=== PATIENT | male | born 1990 | race Caucasian/White ===

== ENCOUNTER 2019-04-04 20:37 | Emergency (ER) | payer OTHER ==
[~2019-04-04] VITALS: Ht 175.3 cm; Wt 90.7 kg
[2019-04-04 20:52] VITALS: Ht 175.3 cm; Wt 90.7 kg
[2019-04-04 23:01] VITALS: BP 120/68
== END 2019-04-04 23:01 | disposition home or self-care (01) ==
LOC: ED 20:37
DX: S33.9XXA Sprain of unspecified parts of lumbar spine and pelvis, initial encounter (principal); X50.0XXA Overexertion from strenuous movement or load, initial encounter; Y93.89 Activity, other specified; Y92.89 Other specified places as the place of occurrence of the external cause; Y99.8 Other external cause status
CPT/HCPCS: J1885; Q0162